=== PATIENT | male | born 1970 | race Caucasian/White ===

== ENCOUNTER 2019-07-21 13:38 | Emergency (ER) | payer SELFPAY ==
[2019-07-21 13:51] VITALS: BP 149/93; PULSE 94; RESP 16; TEMP 37.2; O2SAT 99
--- NOTE | 2019-07-21 14:07 | ED.SKABFB ---
HPI - Skin/Abscess/Foreign Bdy General Chief complaint: Skin/Abscess/Foreign Body Stated complaint: Cyst right side History of Present Illness HPI narrative: This is a 49-year-old male comes in complaining of a abscess that he has on his right side of his neck close to his carotid 2 small areas 1 of them patient states that he squeezed today and it popped inside of his skin skin is kind of erythema and painful to touch Related Data Allergies Allergy/AdvReac Type Severity Reaction Status Date / Time No Known Allergies Allergy Verified 07/21/19 13:57 Review of Systems Review of Systems: Narrative: CONSTITUTIONAL: Denies fever, chills, or sweats. EYES: Denies visual changes, redness, or discharge. ENT: Denies rhinorrhea, congestion, sore throat, or otalgia. CARDIOVASCULAR:Denies chest pain, palpitations, or edema. RESPIRATORY: Denies cough or dyspnea. GASTROINTESTINAL: Denies abdominal pain, nausea, vomiting, or diarrhea. GENITOURINARY: Denies dysuria or hematuria. SKIN:[Denies rash or itching. positive for abscess on lateral MUSCULOSKELETAL:Denies back pain, joint pain, or myalgia. NEUROLOGIC: Denies headache, numbness, or weakness. PSYCHIATRIC:Denies anxiety or depression PMFSH Social History Social History Gender identity (if verbalized by the patient): Male Comments At time as signature, I have reviewed and agree with nursing past medical, social, surgical and family history. Please see nursing chart for further information. There is no relevant family history pertinent to the presenting complaint. Exam Narrative: Exam Narrative: GENERAL:Well-appearing, well-nourished, and in no acute distress. HEAD:Normocephalic, atraumatic. EYES: PERRLA and EOMI. ENT: Nares clear, no rhinorrhea or epistaxis. Mucous membranes moist. NECK: Supple. CHEST: Clear to auscultation. No respiratory distress. HEART: Regular rate and rhythm. No murmur heard. Normal peripheral pulses. ABDOMEN: Soft, nontender, nondistended, normal active bowel sounds. EXTREMITIES: Normal range of motion. No edema. SKIN: Warm, dry, no rash. Right lateral area enlarged reddened area of the skin NEURO: No focal deficits. Alert and oriented x3. Course Vital Signs Vital signs: Vital Signs Temperature 98.9 F 07/21/19 13:51 Pulse Rate 94 07/21/19 13:51 Respiratory Rate 16 07/21/19 13:51 Blood Pressure 149/93 H 07/21/19 13:51 Pulse Oximetry 99 07/21/19 13:51 Temperature 98.9 F 07/21/19 13:51 Pulse Rate 94 07/21/19 13:51 Respiratory Rate 16 07/21/19 13:51 Blood Pressure 149/93 H 07/21/19 13:51 Pulse Oximetry 99 07/21/19 13:51 Your blood pressure was elevated in the clinic today, I feel that this is due to your acute illness rather than essential hypertension. please follow-up with your regular doctor for further evaluation and monitor for evaluation of hypertension Please [facility] schedule a followup visit with your personal physician with in the next 1-4 weeks for further evaluation and treatment. Also, ask your personal physician to assist you regarding blood pressure. Even blood pressure exceeding 120/80 may indicate pre-hypertension. If your symptoms persist, change or worsen significantly before you can contact your personal physician then please, without delay, go to the emergency department for further evaluation. MDM - Skin/Abscess/Foreign Bdy Differential Diagnosis Differential diagnosis: Likely abscess of skin or subcutaneous tissue, dermatophytosis, urticaria, cellulitis, eczema, insect bites and contact dermatitis Discharge Plan Discharge Clinical Impression: Abscess of skin or subcutaneous tissue Qualifiers: Site of cutaneous abscess: other site Qualified Code(s): L02.818 - Cutaneous abscess of other sites Patient Disposition: Home, Self-Care Condition: Stable Instructions: Antibiotic Form, Abscess (ED), Abscess Follow-up (ED) Additional Instructions: Warm compresses to the area 20-30 minutes 4-6
== END 2019-07-21 14:12 | disposition home or self-care (01) ==
PROVIDERS: Emergency Provider Nurse Practitioner Family
DX: L02.11 Cutaneous abscess of neck (principal); F17.200 Nicotine dependence, unspecified, uncomplicated
CPT/HCPCS: 99203; G0463